=== PATIENT | male | born 1950 | race Caucasian/White ===

== ENCOUNTER 2024-01-31 06:19 | Day surgery (SDC) | payer MEDICARE, OTHER, SELFPAY ==
[2024-01-31] VITALS (7 sets, daily range): BP systolic 134–182; BP diastolic 65–94; BMI 35.8
[2024-01-31] MEDS: NSS 321 ML IV (07:09)
[2024-01-31 08:14] LABS: ACT-LR - POC 353 Seconds (116-155)
[2024-01-31 08:45] LABS: ACT-LR - POC 303 Seconds (116-155)
--- NOTE | 2024-01-31 09:07 | ITS.CL.ANGIO ---
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
Angioplasty
Procedure Report:
CARDIAC CATHETERIZATION REPORT
Date of Procedure: 01/31/2024
Referring: Brian Stover D.O.
INDICATION: High risk chest pain, suspect false negative stress test.
PROCEDURE:
1. Left heart catheterization.
2. Coronary angiography.
3. Failed attempt at intravascular ultrasound.
4. Successful PCI of the ostial RCA.
ACCESS:
6 [place]ian right radial artery.
CATHETERS:
1. 5 [place]ian JR4.
2. 5 Maur[place]ian JL 3.5.
3. 6 [place] JR4 guiding catheter.
HEMODYNAMIC DATA
Weight (kg): 106.9
AO (s/d/x, mmHg): 118/67/90
LV (s/x mmHg): 119/19 (A wave to 30)
LEFT VENTRICULOGRAPHY: Not performed.
CORONARY ANGIOGRAPHY
Dominance: Right.
Left Main: Normal size, bifurcating vessel. There is no coronary artery disease.
LAD: Normal size vessel giving rise to 2 significant diagonals. There is a 20% lesion in the proximal LAD. There is a calcified, 70% lesion in the proximal/mid LAD, spanning the origin of the small first diagonal.
Ramus: Congenitally absent.
Circumflex: Large size, nondominant vessel giving rise to 3 obtuse marginals. There are minimal luminal irregularities throughout the body of the vessel. OM 3 is chronically totally occluded in its proximal margin. OM 3 fills via retrograde
collaterals from the LAD and OM 2.
RCA: Normal size, dominant vessel. There is a 90%, eccentric, true ostial RCA lesion.
INTERVENTION(S)
1. Failed attempt at intravascular ultrasound.
2. Successful PCI of the 90% ostial RCA lesion (Xience Skypoint 3.0 x 12 GERMAIN, postdilated with a 3.5 x 8 NC balloon) with reduction in stenosis to 0%, maintaining MAYRA-3 flow.
Narrative:
The decision was made to perform intracoronary imaging. The diagnostic catheter was removed over a wire and exchanged for 6 [place]ian JR4 guiding catheter. The guiding catheter was advanced into the ascending aorta and seated in the right coronary
artery. Additional heparin was given to obtain an ACT greater than 250 seconds. After crossing the lesion with a coronary wire, an IVUS catheter was advanced through the guiding catheter and into the aorta but would not cross the ostium of the
RCA. Ultimately, IVUS was abandoned.
The decision was made to proceed with percutaneous coronary intervention. The calcified, eccentric 90% true ostial RCA lesion was predilated with a 2.0 x 12 semi-compliant balloon to 12 alejandro. The semicompliant balloon was removed and a 3.0 x 12
noncompliant balloon was advanced to ensure adequate expansion. This balloon would not cross the lesion. The noncompliant balloon was removed and the semicompliant balloon was readvanced. The lesion was predilated to 18 alejandro. The semicompliant
balloon was removed and the noncompliant balloon was then readvanced, this time crossing into the RCA with some difficulty. The ostial lesion was predilated to 14 alejandro. A BMW wire was advanced as a bumper wire and seated in the right coronary cusp
to allow for subselective engagement and RCA stent placement. The noncompliant balloon was removed and a Xience Skypoint 3.0 x 12 drug-eluting stent was advanced. The stent across the lesion with some difficulty. Meticulous care was taken while
positioning the stent, with 1�2 cells in the aorta, but covering the ostial lesion. The stent was deployed at 12 atmospheres. The stent balloon was removed. A 3.5 x 8 noncompliant balloon was advanced into the stent and the stent was postdilated to
14 atmospheres throughout. The ostial portion of the stent was postdilated to 16 alejandro to flare the stent in the aorta. Angiography was performed in orthogonal views, confirming good stent expansion and an excellent angiographic result. The coronary
wire was withdrawn and the guide was disengaged from the artery.
Given the complexity, radiation exposure and contrast volume required, the decision was made to stage the proximal/mid LAD lesion. The catheter was removed over a standard J-wire.
Closure Device: Vascular band.
Radiation (mGy): 1632.49
DAP (cm2.Gy): 130.83
Fluoroscopy time (minutes): 18.4
Sedation time (minutes): 63
CONCLUSIONS
1. 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
3.0 x 12 GERMAIN, postdilated with a 3.5 x 8 NC balloon to 14 alejandro throughout, 16 alejandro to flare the ostium) with reduction in stenosis to 0%, maintaining MAYRA-3 flow.
2. Moderately elevated filling pressures (LVEDP = 19 mmHg at 106.9 kg) with evidence of diastolic dysfunction (A wave to 30 mmHg).
RECOMMENDATIONS:
1. Expectant management after cardiac catheterization via right radial approach.
2. Limited weight bearing on the right wrist for one week.
3. Dual antiplatelet therapy with aspirin and clopidogrel for at least 12 months, followed by aspirin indefinitely.
4. Staged PCI of the LAD in 2 weeks.
5. Continue guideline directed medical therapy.
6. High-dose, high potency statin.
7. Referral to cardiac rehab.
Copy to: Brian Stover D.O., Ayo Collazo M.D., Ilya Sánchez M.D.
Brian Stover DO, FACC, FACP
[2024-01-31] MEDS: NSS 1000 IV (09:17)
--- NOTE | 2024-01-31 16:35 | W.PN.UPDATE ---
Update Note
Progress Note Update
Pt seen post RCA PCI. Right radial cath site without ht/bleeding. OOB ambulating. Post EKG SB 58, no acute changes. Pt understands importance of uninterrupted DAPT w/asa, plavix. Cardiac rehab consulted.
Residual CAD in LAD, and will return next week for staged intervention. Followup at [facility] post 2nd PCI. Home today if cath site/tele remain stable.
== END 2024-01-31 13:56 | disposition home or self-care (01) ==
LOC: CATH 06:19
PROVIDERS: ATTENDING PHYSICIAN Internal Medicine Cardiovascular Disease; FAMILY PHYSICIAN Family Medicine; OTHER PHYSICIAN Internal Medicine Cardiovascular Disease
DX: I25.10 Atherosclerotic heart disease of native coronary artery without angina pectoris (principal); R07.9 Chest pain, unspecified; Z79.82 Long term (current) use of aspirin; Z79.02 Long term (current) use of antithrombotics/antiplatelets; F17.210 Nicotine dependence, cigarettes, uncomplicated
CPT/HCPCS: 93458; 92978; C9600; 85347; 93005; C1725; C1753; C1769; C1874; C1894; Q9967

== ENCOUNTER 2024-02-01 23:39 | Inpatient (IN) | payer MEDICARE, OTHER, SELFPAY ==
[2024-02-01] VITALS (7 sets, daily range): BP systolic 152–169; BP diastolic 76–85; BMI 35.2
[2024-02-01 21:43] LABS: % Basophils 0.1 % (0-2); % Eosinophils 2.8 % (0-6); % Immature Granulocytes 0.3 % (0-0.5); % Lymphocytes 26.2 % (20.5-51.1); % Monocytes 4.9 % (1.7-9.3); % Neutrophils 65.7 % (42.2-75.2); Absolute Eosinophils 0.2 10^3/uL (0-0.7); Absolute Lymphocytes 1.8 10^3/uL (1.2-3.4); Absolute Monocytes 0.3 10^3/uL (0.1-0.6); Absolute Neutrophils 4.4 10^3/uL (1.4-6.5); Hematocrit 28.8 % (39.0-52.0); Hemoglobin 9.5 g/dL (13.0-18.0); Mean Corpuscular Hgb 32.4 pg (27.0-31.0); Mean Corpuscular Volume 98.3 fL (80.0-94.0); Nucleated Red Blood Cells % 0 % (-); Red Blood Cell Count 2.93 10^6/uL (4.70-6.10); Red Cell Dist. Width 13.7 % (11.5-14.5); White Blood Cell Count 6.8 10^3/uL (4.8-10.8)
--- NOTE | 2024-02-01 21:55 | ED.GENMED ---
History of Present Illness
General
Chief Complaint: Abdominal Symptoms
Source: patient and spouse
Exam Limitations: none
Time Seen by Provider: 02/01/24 21:11
Travel History
Have you had any contact with someone who has COVID-19?: No
Do you have any symptoms of coronavirus? Fever > 100 degrees, chills, cough, shortness of breath, sore throat, loss of taste or smell, muscle aches, or headache?: No
History of Present Illness
History of Present Illness:
73-year-old male relatively sudden onset disequilibrium vertigo nausea vomiting at 6 PM. Has had some headache earlier that he thought was from his Imdur. No other focal neurologic symptoms. Had a cardiac cath done yesterday and stent placement.
No chest pain or shortness of breath.
Past History
Past History
ED Past Medical History: CAD
ED Past Surgical History: Appendectomy and Cardiac (Cardiac stent)
Social History
Tobacco: Non-smoker
Personal:
Living: with family
Review of Systems
Review of Systems
All Other Systems: Not applicable
Respiratory: Reports no symptoms
Cardiac: Reports no symptoms
Phy Exam
Physical Exam
Physical Exam:
GENERAL: Alert and oriented in no apparent distress
EYE: Orbits normal. Bilateral nystagmus. Questionable slight rotatory component.
NECK: Supple, no significant adenopathy. No carotid bruit
ENT: Pharynx without erythema
CARDIAC: Regular rate and rhythm without any obvious murmurs.
LUNGS: Clear breath sounds,normal
ABDOMEN: Soft, without focal tenderness or distention
NEUROLOGICAL: Alert and oriented , speech normal. Cranial nerves II through XII intact. [id number] normal. Nonfocal.
SKIN: Warm and dry, no rash or lesion, no discoloration, skin intact.
MUSCULOSKELETAL: No edema,no deformity.Good color
PSYCH: Normal and appropriate interaction.
Course
Orders/Labs/Results
Orders:
Orders
02/01/24 20:57
Electrocardiogram (*1) Urgent
Reason for Study: Abdominal Pain
02/01/24 20:58
EKG- Treatment ONCE
02/01/24 21:25
CT Head W/o Cont STROKE ALERT Urgent
Comment:
Reason For Exam: Sudden disequilibrium/vertigo
CT Head/Neck Ang STROKE ALERT Urgent
Comment:
Reason For Exam: Sudden disequilibrium/vertigo
02/01/24 21:34
CMP [Comprehensive Metabolic Panel] Urgent
Complete Blood Count/With Diff Urgent
02/01/24 22:14
Ondansetron Injectable [Zofran] 4 mg IV NOW STA
02/01/24 23:22
Admit/Transfer Patient As Directed
Co-Sign Provider:
Level of Care: Inpatient admission
Assign to:: Telemetry
Physician / Group: Nickolas
Diagnosis: Vertigo
Reason for Telemetry: CVA/TIA
Date to Stop Telemetry: 02/04/24
Time to Stop Telemetry: 11:00
Reason for Hospitalization: Vertigo v posterior circ CVA.
Expected length of stay greater than two midnights?: Yes
ELOS- Estimated Length of Stay in days: 2
I certify the patient meets the requirements for IP care: Yes
02/01/24 23:24
Code Status As Directed
Resuscitation Status: Full Code
02/01/24 23:31
diazePAM [Valium Injection] 2 mg IV NOW STA
02/02/24 02:50
0.9% Sodium Chloride [Nss (Preservative Free)] See Protocol IV PRN PRN
Acetaminophen [Tylenol] 650 mg PO Q4HPRN PRN
Diazepam [Valium] 5 mg PO TIDPRN PRN
FOLic ACID [Folvite] 1 mg 0.9% Sodium Chloride 50 ml [Nss] 50 ml IV DAILYPRN
Lorazepam [Ativan] 1 mg IV Q1HPRN PRN
Lorazepam [Ativan] 1 mg PO Q2HPRN PRN
Lorazepam [Ativan] 2 mg IV Q1HPRN PRN
Ondansetron Injectable [Zofran] 4 mg IV Q6HPRN PRN
02/02/24 02:50
Case Management Consult Once
Case Management Consult: Other
Comment: Substance abuse counseling
DIETARY CONSULT Routine
Reason for Consult: Nutrition support, possible refeeding guidelines
NEUROLOGY CONSULT Routine
Consulting Provider: Celeste Harris
Was physician already notified: Yes
Reason for consult: Dizziness
TSH Reflex To Free T4 Routine
Activity As Directed
Activity Level: Ambulate
With Assistance
Bladder Scan As Directed
Follow Bladder Retention/Intermittent Cath Algorithm?: Yes
PRN if no void in __ hours: 6
Frequency: Per Retention Algorithm
If Bladder Scan Result >: 400
then:: Straight cath
EKG with chest pain [ECG as needed] As Directed
ECG as needed for:: Chest Pain
I/O [Intake/ Output] As Directed
Frequency: Per unit guidelines
MSAS SCORE As Directed
MSAS Score 0-4: Repeat MSAS every 2 hours until 0-4 for three consecutive assessments, then every 4 hours x 48
hours.
MSAS Score 5-7: For MILD withdrawl symptoms. Repeat MSAS and RASS every 2 hours
MSAS Score 8-11: For MODERATE withdrawal symptoms. Repeat MSAS and RASS every 1 hour. Consider ICU or IMU
level of care.
MSAS Score > 11: For SEVERE withdrawal symptoms. Repeat MSAS and RASS every 1 hour. Notify provider, consider
ICU level of care.
MSAS Additional Instructions: If no improvement or no decrease in score from severe to moderate within 12
hours, consult psychiatry
MSAS Notify Provider: Notify provider if patient requires more than 10 mg of Lorazepam in eight hour period.
Neurological Checks As Directed
Frequency: q4h
Pneumatic Compression Sleeves As Directed
Type: Knee high
Straight Cath As Directed
Frequency: Per Retention Algorithm
Additional Instructions: straight cath as needed per acute urinary retention algorithm for 24 hrs
Additional Instructions: for bladder scan greater than 400 mL
Vital Signs As Directed
Frequency: Per unit guidelines
Oxygen Therapy [O2 Therapy] [RESP] Routine
Titrate/Wean O2 to maintain O2 sat greater than (%): 94
Ot Eval And Treat Routine
PT Consult [Pt Eval And Treat] Routine
Activity Level: Ambulate
With Assistance
DX Deep Vein Thrombosis Video Routine
02/02/24 06:00
EKG [Electrocardiogram (*1)] IN AM
Reason for Study: Chest Pain
Clear Liquid
Basic Metabolic Panel IN AM
Complete Blood Count/No Diff IN AM
Magnesium IN AM
MR Brain Without Contrast IN AM
Comment:
Reason For Exam: Vertigo
Recent pill cam endoscopy?: No
02/02/24 08:00
Clopidogrel Bisulfate [Plavix] 75 mg PO DAILY
FOLic ACID [Folvite] 1 mg PO DAILY
Thiamine Injection 200 mg IV Q12
02/02/24 22:00
Aspirin Chewable [Low Strength Aspirin] 81 mg PO HS
Atorvastatin [Lipitor] 40 mg PO HS
ISOSORBIDE MONOnitrate ER [Imdur (Extended Release)] 30 mg PO HS
Metoprolol Xl [Toprol Xl] 50 mg PO HS
02/04/24 11:00
DC Protocol for Telemetry ONCE
02/05/24 08:00
Thiamine HCl [Vitamin B1] 100 mg PO BID
Abnormal Lab Results
02/01/24
21:34
RBC 2.93 L 10^6/uL
(4.70-6.10)
Hgb 9.5 L g/dL
(13.0-18.0)
Hct 28.8 L %
(39.0-52.0)
MCV 98.3 H fL
(80.0-94.0)
MCH 32.4 H pg
(27.0-31.0)
Plt Count 77 L 10^3/uL
(130-400)
MPV 11.2 H fL
(7.4-10.4)
BUN 25 H mg/dl
(9-20)
Glucose 115 H mg/dl
(70-99)
02/01/24 21:34
02/01/24 21:34
Vital Signs
Initial and Last Documented VS:
Initial Vital Signs
Temp Pulse Resp Pulse Ox
97.9 F 62 12 96
02/01/24 20:59 02/01/24 20:59 02/01/24 20:59 02/01/24 20:59
Last Documented Vital Signs
Temp Pulse Resp BP Pulse Ox
97.9 F 56 10 148/76 93
02/01/24 20:59 02/02/24 02:00 02/02/24 02:00 02/02/24 02:00 02/02/24 02:00
MDM/Problems Addressed
Differential Diagnosis Includes:
Concern for central etiology with sudden onset of symptoms and no reason for a sudden inner ear issue. Also bilateral nystagmus. Discussed with neurology. 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
she know his kidney function was normal. Was sent for CT and CT angiography.
*Radiology
Radiology exam reviewed: radiology read reviewed (Negative CT head negative CT angiography)
*Pulse Oximetry
Patient hypoxic: no
*EKG
Interpreted by ED Provider?: Yes
Interpretation: abnormal
Comparison EKG: changes noted
Heart Rate: 63
Rate: normal
Rhythm: sinus and PAC's
[place]: normal axis
Interval: normal interval
QRS Pattern: normal QRS
Ischemia: no ischemia
*Communications Marketing Intern Interpretation
Rate: normal
Interpretation: normal
Heart Rate: 66
Rhythm: sinus
*Critical Care Note
Total Time (30-74mins, 75-104mins- exclusive of procedures): 15
Update Note
Update Note:
Testing stable. Discussed with neurology. Also made invasive cardiology aware. Discussed with hospitalist.
ED Attending Note
-
Portions of this chart may have been created with voice recognition software.� Occasional wrong word or��sound alike� substitutions may have occurred due to the inherent limitations of voice recognition software.
Discharge Plan
Departure
Patient Disposition: Admit
Date of Disposition: 02/01/24
Time of Disposition: 22:10
Presentation/result/management discussed w/ accepting MD/DO: Neurology
Discharge Problem:
Sudden disequilibrium/ataxia, Possible cerebellar ischemia, Recent cardiac cath, Anemia/thrombocytopenia
Interventions
Interventions:
*Risk Screen - Suicide Last Done: 02/01/24 20:59
*General Assessment Last Done: 02/01/24 20:59
*Neglect/Abuse Screening Last Done: 02/01/24 20:59
ED- Fall Risk Assessment Last Done: 02/01/24 21:17
*ED COVID-19 Vaccine History Last Done: 02/01/24 21:17
FI-Flyuyz-Itqljmizzx Assessment Last Done: 02/01/24 21:17
[2024-02-01 21:56] LABS: ALT (SGPT) 20 U/L (0-50); AST (SGOT) 26 U/L (17-59); Albumin 4.1 g/dl (3.5-5.0); Alkaline Phosphatase 64 U/L (38-126); Blood Urea Nitrogen 25 mg/dl (9-20); Carbon Dioxide 24 mmol/L (22-30); Chloride 106 mmol/L (98-107); Estimated Creatinine Clearance 83 ml/min; Glucose 115 mg/dl (70-99); Sodium 135 mmol/L (135-145); Total Bilirubin 0.6 mg/dl (0.2-1.3); Total Protein 7.2 g/dl (6.3-8.2); eGFR > 60.00
[2024-02-01 21:59] LABS: Mean Platelet Volume 11.2 fL (7.4-10.4); Platelet Count 77 10^3/uL (130-400)
[2024-02-01] MEDS: ZOFRAN 4 MG IV (22:23)
--- NOTE | 2024-02-01 23:32 | HPS.HSE ---
Family Physician
-
Family Physician: Ayo Collazo MD
Chief Complaint
-
Dizziness, N/V
History of Present Illness
Patient is a 73y M with PMH significant for ASCVD who presents to ED complaining of acute onset of dizziness this evening. Patient is s/p cardiac catheterization on 01/31/24 for multi-vessel coronary disease. Patient underwent GERMAIN placement to
the RCA and is tentatively set for repeat cath in a week or so for staged intervention on proximal LAD lesion. Patient states that he was doing well after the procedure. He had a mild headache today and thought that it might be due to his Imdur -
which he started taking about one week ago. Patient states that he was grilling this evening around 6 PM when he had sudden onset of dizziness / vertigo. Patient states that he felt very unsteady on his feet. He did not fall. He developed nause
and had several episodes of non-bloody, bilious emesis and ultimately presented to the ED for further evaluation.
In the ED, patient continues to complain of nausea and has had an additional 5 episodes of emesis here. He no longer complains of dizziness sensation.
Patient also had mild epistaxis here in the ED.
Patient denies any prior history of similar symptoms. He denies any numbness / tingling in the arms / legs.
Family has noted no slurring speech, facial asymmetry, etc.
In addition to Imdur started one week ago, patient is newly on Plavix beginning yesterday. He was already on ASA 81mg daily and continues this.
Medical History
Past Medical History
Past Medical History: Reports Other
Additional Past Medical History:
ASCVD
DJD
Past Surgical History: Reports Other
Additional Past Surgical History:
Appendectomy
PTCA with Stent (01/31/24)
Social History
Tobacco: Former Smoker (Quit smoking 15 years ago. Approx 40 pack years total use.)
Alcohol: Daily (1-2 drinks every day.)
Drug: None
Personal:
Living: With Family
Family History
Family History: Not pertinent
Allergies / Home Medications
Allergies reflects when Allergies were last updated in [facility].
Home Medications with original date entered in [facility]
Allergy/Medication List:
Allergies
Allergy/AdvReac Type Severity Reaction Status Date / Time
Penicillins Allergy Rash Verified 01/31/24 06:50
Home Medications
aspirin 81 mg chewable tablet 81 mg PO HS 01/31/24
atorvastatin 40 mg tablet 40 mg PO HS 01/31/24
clopidogrel 75 mg tablet 75 mg PO DAILY #90 tabs 01/31/24
ibuprofen 200 mg tablet 200 mg PO Q6H PRN mild pain 01/31/24
isosorbide mononitrate 30 mg tablet,extended release 24 hr 30 mg PO HS 01/31/24
metoprolol succinate 50 mg tablet,extended release 24 hr 50 mg PO HS 01/31/24
naproxen 500 mg tablet 500 mg PO BID PRN mild Pain 01/31/24
nitroglycerin 0.4 mg sublingual tablet 0.4 mg sublingual [id number] PRN chest pain #25 tabs 01/31/24
buprenorphine 8 mg-naloxone 2 mg sublingual film 1 film sublingual TID 02/01/24
Review of Systems
-
History Source: Patient
A 12 point ROS was completed and negative except as noted: Yes
Constitutional: Denies Fever or Chills
EENT: Reports Other (epistaxis); Denies Sore Throat
Respiratory: Denies Cough or Trouble Breathing
Cardiac: Denies Chest Pain, Palpitations or Syncope
Abdomen/GI: Reports Nausea and Vomiting; Denies Abdominal Pain, Diarrhea, Bloody Stools or Black Stools
: Denies Dysuria or Frequency
Musculoskeletal: Denies Edema
Neurological: Reports Dizzy and Headache; Denies Weakness or Numbness
Psych: Denies Depression or Anxiety
Physical Exam
Vital Signs
Vital Signs
Temp Pulse Resp BP Pulse Ox
97.9 F 66 21 156/84 95
02/01/24 20:59 02/01/24 22:30 02/01/24 22:30 02/01/24 22:30 02/01/24 22:30
Physical Exam
General: Other (73y M in mild distress due to nausea.)
HEENT: Moist mucous membranes, PERRLA and Other (No appreciable nystagmus at present. )
Respiratory: Clear; No Wheezes, Rales or Rhonchi
Cardiac: S1/S2 and Regular Rhythm; No Murmur
GI: Soft, Non Tender, Non Distended and Normal Bowel Sounds
Musculoskeletal: No Clubbing, No Cyanosis, No Edema and Other (R wrist dressing in place s/p cath 01/31/24.)
Neuro: AO x 3 and Other (Strength is intact / symmetric. No abnormal cerebellar signs appreciated.)
Laboratory Results
-
02/01/24 21:34
02/01/24 21:34
Laboratory Results
Total Bilirubin 0.6 mg/dl (0.2-1.3) 02/01/24 21:34
AST 26 U/L (17-59) 02/01/24 21:34
ALT 20 U/L (0-50) 02/01/24 21:34
Alkaline Phosphatase 64 U/L (38-126) 02/01/24 21:34
Impression/Plan
-
A/P: Patient is a 73y M with PMH significant for CAD s/p PTCA and stenting on 01/31/24 who presents to ED complaining of abrupt onset of dizziness with N/V this evening.
Vertigo / Dizziness
Intractable N/V
- Admit for further evaluation and treatment.
- ? BPPV versus posterior circulation CVA / insult.
- Supportive care for now with antiemetics, vertigo medications, etc.
- Follow for changes in neuro exam.
- Continue DAPT without interruption.
- Neuro consulted.
- MRI brain in AM for further evaluation.
- PT / OT evaluations.
- Follow for clinical improvement and / or any new or worsening symptoms.
ASCVD
- Stable. No chest pain, dyspnea, etc.
- s/p cath with RCA stent placement 01/31/24.
- Has known proximal LAD lesion tentatively for staged intervention next week.
- Continue current CV med regimen as noted above.
- Follow for any new symptoms.
Elevated BP
- Patient denies any prior history of hypertension.
- On current medications for antianginal properties, not BP control.
- Continue meds as noted above, but holding parameters to allow degree of hypertension after possible CVA.
- Goal of normotension prior to discharge.
Thrombocytopenia
- No prior labs for comparison.
- Mild epistaxis noted in the ED - improved.
- Would continue DAPT for now given issues as noted above.
- Continue to monitor platelet count and watch for any signs of bleeding.
DVT Prophylaxis: SCDs
Code Status: Full
[2024-02-02] VITALS (18 sets, daily range): BP systolic 121–165; BP diastolic 72–85; PULSE 57; BMI 32.9
[2024-02-02] MEDS: VALIUM INJECTION 2 MG IV (00:43)
[2024-02-02 04:16] LABS: Hematocrit 31.9 % (39.0-52.0); Hemoglobin 10.2 g/dL (13.0-18.0); Mean Corpuscular Hgb 31.3 pg (27.0-31.0); Mean Corpuscular Volume 97.9 fL (80.0-94.0); Mean Platelet Volume 11.4 fL (7.4-10.4); Platelet Count 83 10^3/uL (130-400); Red Blood Cell Count 3.26 10^6/uL (4.70-6.10); Red Cell Dist. Width 13.6 % (11.5-14.5); White Blood Cell Count 6.3 10^3/uL (4.8-10.8)
--- NOTE | 2024-02-02 04:28 | PTCARENOTE ---
Patient arrived from ER around 0230 to room 3343. Ambulated from stretcher to BR with FWW; reports some dizziness but denies nausea or vomiting at this time. Oriented to room and use of call stafford. Admission questions complete. MSAS ordered per
provider; score of zero. Pt reports last drink was 01/29/24. Right wrist dressing removed; cath site intact and scabbed over, no redness, pt reports some tenderness at site, +2 radial pulse. LE with trace edema, slightly brown in color, pt reports
this is chronic. On room air; lungs with coarse sounds at bilateral bases. Tele applied showing NSR/SB. Denies any chest pain or pain in general. Pt tolerating ice water, swallowing w/o signs of aspiration. Q4 hour neuro checks in place; no deficits
noted.
Call stafford and tray table left within reach. RN sitting outside closest nursing station.
[2024-02-02 04:39] LABS: Blood Urea Nitrogen 22 mg/dl (9-20); Calcium 9.6 mg/dl (8.4-10.2); Carbon Dioxide 26 mmol/L (22-30); Chloride 103 mmol/L (98-107); Estimated Creatinine Clearance 83 ml/min; Glucose 112 mg/dl (70-99); Magnesium 2.1 mg/dl (1.6-2.3); Potassium 4.5 mmol/L (3.5-5.1); Sodium 138 mmol/L (135-145); eGFR > 60.00
[2024-02-02 05:10] LABS: TSH Reflex To Free T4 1.12 uIU/ml (0.47-4.68)
--- NOTE | 2024-02-02 09:07 | CON.NEURO4 ---
Consultation - Neurology 4
-
CONSULTING PHYSICIAN: Eric Quick
REFERRING PHYSICIAN: Hospitalist
DICTATED BY: Eric Quick
DATE/TIME OF REQUEST: 02/02/24
DATE/TIME OF CONSULTATION: 02/02/24
Reason for Consultation: Nausea/vomiting, dizziness, vertigo and balance problems of sudden onset
History of Present Illness:
Patient is a 73 year old right handed man with history of CAD and recent coronary stent on 01/30 who presented to hospital yesterday evening after sudden onset of disequilibrium which evolved into vertigo, nausea and vomiting. Patient had done well
after cardiac catheterization and went home the same day with no symptoms. The evening of 01/31 he was doing some grilling steaks around 6 PM when he had sudden onset of a feeling of imbalance, he sat down thinking this would help but the feeling
worsened and he started to have vertigo with nausea and had several episodes in vomiting total. There was no headache or neck pain, possibly some abnormal movements of the eyes but no diplopia, dysarthria, unilateral weakness or paresthesia and no
loss of consciousness. Nothing like this had ever happened before. There was no new hearing loss or tinnitus and no hiccups. He had CTA of the head and neck and CT head done in ER which showed no acute or intervenable abnormalities. His last
episode of vomiting was about 2 AM last night. No chest pain or dyspnea or palpitations with presenting symptoms. Symptoms lasted several hours in total.
He is feeling improved this morning. No neck pain or headache. Not feeling 100% but better. No recent neck injuries, no recent illnesses before this. No chest pain or or dyspnea at this time. No history of any migraine headaches or episodes of
vertigo. Had had a eustachian tube problem many years ago.
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
Past Medical History: Coronary artery disease, degenerative joint disease
Surgical History: Appendectomy, cardiac catheterization with GERMAIN to RCA 01/31/24
Family History: Non-contributory
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
Allergies: Penicillins
Review of Symptoms:
Patient denies any fever, headache, chest pain, shortness of breath, GI or symptoms.
Physical Exam:
Middle elderly aged man appears his stated age, appears well no distress, no head or neck trauma, eyes and oropharynx clear, neck no masses. Heart rate regular, breathing unlabored, abdomen soft non tender, no lower extremity edema.
Neurologic Examination:
The patient is awake, alert and oriented x 3. He is able to follow commands and answer questions appropriately. There is no aphasia or dysarthria. On cranial nerve assessment, pupils are 3 mm bilateral, round and reactive to light and
accommodation. Visual gaxiola are full. Extraocular movements are intact. Facial sensations are intact and bilaterally symmetrical, there is no facial asymmetry. Hearing is intact bilaterally to normal conversation volume. Tongue palate and uvula
are midline. Sternocleidomastoid strengths are full bilaterally. Motor strengths are 5/5 bilateral upper and lower extremities on medical research [place] scale. There is no drift or involuntary movement noted. Deep tendon reflexes are 2+ bilateral
upper and lower extremities and Babinski is absent bilaterally. Sensations of pain, touch, temperature and vibration are intact and bilaterally symmetrical. There was no extinction noted on double simultaneous stimulation. Coordination is intact by
finger to nose bilaterally. Able to sit and stand independently, stance is normal, no wide base or ataxia
Neuro Imaging: CT head non contrast no acute or chronic infarcts, no hemorrhage, no masses
CTA head and neck with bilateral carotid stenosis and calcification seen, no intracranial occlusion, vertebral and basilar arteries patent
CTA head and neck
FINDINGS: The bolus is weak but the study is readable There is no gross evidence of M1 or M2 occlusion. There is no evidence of carotid dissection.
There is mild atherosclerotic vascular disease.
Right: There is severe calcified plaque of the distal right common carotid artery. There is moderate plaque in the right carotid siphon.
Left: There is severe distal left common carotid artery calcified plaque. There is severe plaque of the proximal left internal carotid artery causing 50% stenosis. There is moderate plaque of the left carotid siphon
The posterior circulation is intact.
The enhanced brain parenchyma is unremarkable.
There is mild left ethmoid sinus and moderate left maxillary sinus mucosal thickening.
There is no significant cervical lymphadenopathy. Salivary glands are within normal limits. The imaged lungs show no significant abnormalities. The airway is within normal limits.
IMPRESSION: Slightly limited bolus but no gross evidence of M1 or M2 occlusion. No carotid dissection.
Moderate nonacute sinusitis.
Impressions
1. Sudden onset dysequlibrium, vertigo, nausea and vomiting 1 day after uncomplicated cardiac catheterization. Normal neurologic examination now and has improved. Most likely this is a minor stroke to the cerebellum which has improved versus
TIA of the posterior circulation. Could have been provoked from the recent cardiac catheterization. Otherwise does have vascular risk factors for stroke with CAD. His current examination along with the duration of symptoms are not consistent with
vestibular neuritis, BPPV, or meniere's disease.
2. Asymptomatic carotid stenosis.
3. Recent cardiac catheterization
4.
Patient has the following risk factors for their symptoms:
IV Tenecteplase/IAT candidacy: No LVO not an IAT candidate, was not given TNK
Recommendations:
1. Would pursue goal normotension
2. Neurologic checks and NIH scales
3. Monitor on cardiac telemetry
4. No changes to the antiplatelet regimen with DAPT, from neurologic perspective he will not need to be on DAPT for any longer than 3 weeks, anticipate several months of DAPT for the cardiac stent
5. Would check MRI of the brain without contrast, if not able to obtain study then would repeat CT head non contrast this afternoon understanding that CT head will be unlikely to visualize a cerebellar or posterior circulation infarct
6. PT/OT evaluations
7. Would check transthoracic echocardiogram
8. Would have outpatient vascular surgery evaluation for carotid stenosis which I feel is asymptomatic as symptoms do not align with a carotid source
9. Symptomatic treatment of vertigo or nausea which has improved
Will follow
Discussed patient care with: Patient
[2024-02-02] MEDS: PLAVIX 75 MG PO (09:16)
[2024-02-02] MEDS: FOLVITE 1 MG PO (09:16)
[2024-02-02] MEDS: THIAMINE INJECTION 200 MG IV ×2 (09:16→20:32)
[2024-02-02] MEDS: FLUSH (NSS) 1 FLUSH IV (09:17)
--- NOTE | 2024-02-02 09:52 | PTCARENOTE ---
Patient tolerated clear liquid tray. Denies any nausea. Reports slight dizziness with ambulation. Patient currently off unit to MRI of brain.
--- NOTE | 2024-02-02 12:32 | PTCARENOTE ---
Report given to Will RN. Patient going to cardiac services for an echo and will be transported to 4th floor rm 415 bed 1 afterwards.
--- NOTE | 2024-02-02 13:30 | W.PN.HOSP.TC ---
Today's Communication/Plan
-
DAPT, Statin
goal normotension
ECHO
PT/OT
Assessment / Plan
Assessment / Plan
General: Other (73y M in mild distress due to nausea.)
HEENT: Moist mucous membranes, PERRLA and Other (No appreciable nystagmus at present. )
Respiratory: Clear; No Wheezes, Rales or Rhonchi
Cardiac: S1/S2 and Regular Rhythm; No Murmur
GI: Soft, Non Tender, Non Distended and Normal Bowel Sounds
Musculoskeletal: No Clubbing, No Cyanosis, No Edema and Other (R wrist dressing in place s/p cath 01/31/24.)
Neuro: AO x 3 and Other (Strength is intact / symmetric. No abnormal cerebellar signs appreciated.)
#Sudden onset dysequlibrium, vertigo, nausea and vomiting
-2/2 to cva most likely
-MRI: Tiny punctate focus of nonhemorrhagic subacute infarct in the high left frontoparietal lobe.
-Goal normotension
-NIH scales
-Tele
-DAPT: neurologic perspective he will not need to be on DAPT for any longer than 3 weeks although will be on for longer period of time due to PCI
-PT/OT
-ECHO
-Outpatient vascular for eval of carotid stenosis
#ASCVD
- Stable. No chest pain, dyspnea, etc.
- s/p cath with RCA stent placement 01/31/24.
- Has known proximal LAD lesion tentatively for staged intervention next week.
- Cont DAPT, statin
- Follow for any new symptoms.
Elevated BP
- Continue meds as noted above, but holding parameters to allow degree of hypertension after possible CVA.
- Goal of normotension
Thrombocytopenia
- No prior labs for comparison.
- Mild epistaxis noted in the ED - improved.
- Would continue DAPT for now given issues as noted above.
- Continue to monitor platelet count and watch for any signs of bleeding.
DVT Prophylaxis: HSQ
Total time spent on today's encounter was 50 minutes which included time spent in counseling the patient/family regarding diagnosis and treatment plan as listed above, goals of care, and symptom management. Case was discussed with nursing staff,
specialists, and care coordinators/case management. All labs and imaging personally reviewed by me. Remainder the time spent in detailed review of previous records, lab data, imaging, and other medical provider documentation.
Anticipated Discharge: Within 24 hours
Subjective/Interval History
-
Date of Service: February 02, 2024
No acute events overnight
Objective Data
-
Labs:
Laboratory Results
02/02/24
03:42
WBC 6.3
Hgb 10.2 L
Hct 31.9 L
Plt Count 83 L
Sodium 138
Potassium 4.5
Chloride 103
Carbon Dioxide 26
BUN 22 H
Creatinine 1.0
Glucose 112 H
Calcium 9.6
Vital Signs:
Vital Signs
Temp Pulse Resp BP Pulse Ox
97.9 F 59 16 121/85 98
02/02/24 13:29 02/02/24 13:29 02/02/24 13:29 02/02/24 13:29 02/02/24 13:29
I&O
02/01/24 02/02/24 02/03/24
06:59 06:59 06:59
Output Total 500 / 500
Balance -500 / -500
Review of Systems
-
History Source: Patient
All other systems: Not reviewed unless documented
Data Reviewed
-
Labs: Labs Reviewed by me
--- NOTE | 2024-02-02 15:08 | PTCARENOTE ---
Pt [id number] from IMU. Ambulated to bed from the carpenter. Assesment unchanged from this morning. Pt rezsting in bed, call stafford in reach, at bedside.
[2024-02-02] MEDS: TOPROL XL 50 MG PO (22:50)
[2024-02-02] MEDS: LIPITOR 40 MG PO (22:50)
[2024-02-02] MEDS: LOW STRENGTH ASPIRIN 81 MG PO (22:50)
[2024-02-02] MEDS: TYLENOL 650 MG PO (22:51)
[2024-02-02] MEDS: IMDUR (EXTENDED RELEASE) 30 MG PO (22:51)
[2024-02-03 03:54] VITALS: BP 124/64
[2024-02-03 07:30] VITALS: BP 149/80
--- NOTE | 2024-02-03 07:45 | W.PN.NEURO.1 ---
Addendum entered and electronically signed by Ryan Quick MD 02/03/24 14:40:
Carotid ultrasound reviewed, study supportive of 50-69% stenosis bilaterally on the carotid arteries. Okay for discharge from my perspective on maximal medical therapy. Given the overall context of stroke 1 day after cardiac catheterization I do
not feel that his stroke is likely to represent symptomatic carotid stenosis. Should have the carotid stenosis followed in the outpatient setting can follow with neurology or cardiology.
Original Note:
Today's Communication / Plan
-
-Continue DAPT and statin
-Would delay any planned cardiac procedures for 1-2 weeks
-Check carotid ultrasound which will help with following carotid stenosis seen on CTA
-Goal normotension and normoglycemia
-Neurologic checks and NIH scales
-Anticipate may be able to DC after carotid ultrasound provided no stenosis on left ICA more than 50%
Neuro Assessment/Plan
Assessment
1. Sudden onset dysequlibrium, vertigo, nausea and vomiting 1 day after uncomplicated cardiac catheterization. Normal neurologic examination now and has improved
MRI shows small left frontal stroke in the MCA territory that explains his symptoms
CTA showed 50% plaque on the left ICA
Given the context of cardiac catheterization seems less likely this can be attributed solely to left carotid stenosis but still a possible mechanism
Periprocedural stroke due to inflammation and prothrombotic state after vascular procedures is strong possibility for cause of stroke
Less likely but possible the stroke occurred with delayed symptoms after emboli from catheterization of plaque and embolic debris
Subjective/Objective
Subjective Data
Date of Service: February 03, 2024
No acute events overnight, patient feeling much better, not having any headache or dizziness or vomiting, discussed the small stroke on MRI
Objective Data
Vital Signs
Temp Pulse Resp BP Pulse Ox
97.9 F 58 18 124/64 97
02/03/24 03:54 02/03/24 03:54 02/03/24 03:54 02/03/24 03:54 02/03/24 03:54
Sodium 138 mmol/L (135-145) 02/02/24 03:42
Potassium 4.5 mmol/L (3.5-5.1) 02/02/24 03:42
BUN 22 mg/dl (9-20) H 02/02/24 03:42
Glucose 112 mg/dl (70-99) H 02/02/24 03:42
Calcium 9.6 mg/dl (8.4-10.2) 02/02/24 03:42
Patient Allergies
Penicillins Allergy (Verified 01/31/24 06:50)
Rash
LDL Level: <70, continue statin
Review of Systems
-
History Source: Patient
All other systems: Reviewed and negative
Constitutional: No Symptoms
EENT: No Symptoms Reported
Respiratory: No Symptoms
Cardiac: No Symptoms
Abdomen/GI: No Symptoms
Genitourinary: No Symptoms
Musculoskeletal: No Symptoms
Skin: No Symptoms
Neuro: Negative Headache
Endocrine: No Symptoms
Hematologic / Lymphatic: No Symptoms
Allergy / Immunology: No Symptoms
Physical Exam
-
General: Well Nourished
Eyes: No Ptosis
HEENT: Normocephalic
Neck: No Bruits Bilaterally
Respiratory: Clear to Auscultation
Cardiac: Regular Rhythm
GI: Normal Bowel Sounds
Skin: Unremarkable
Extremities: No Clubbing
Psych: Negative Confused
Extended Neurological Exam
Mood & Affect: Mood Unremarkable and Affect Unremarkable
Attention Span & Concentration: Awake, Alert and Interactive
Memory: Unremarkable
Tremor: Hand Tremor Absent
Involuntary Movement: None
Speech: Quality Unremarkable and Quantity Unremarkable; Negative Expressive Aphasia, Receptive Aphasia or Dysarthric
Cranial Nerve II: Left Eye: Pupillary Reactivity Unremarkable, Pupillary Size Unremarkable and Visual Angel Intact
Cranial Nerve II: Right Eye: Pupillary Reactivity Unremarkable, Pupillary Size Unremarkable and Visual Angel Intact
Cranial Nerves III, IV, : Extraocular Movement: Extraocular Movement Full in all Directions
Cranial Nerve VII: Facial Symmetry: Normal Facial Symmetry
Cranial Nerve VIII: Hearing: Unremarkable Hearing to Normal Conversational Volume
Muscle Strength, Overall: Full Throughout
Muscle Bulk & Tone: Bulk Unremarkable
Pronator Drift: No Drift in Upper Extremities
Deep Tendon Reflexes: Trace Throughout
Vibration Sensation: Unremarkable
Touch Sensation: Unremarkable
Coordination: Xnxceg-[id number]-[id number] Testing Unremarkable
Babinski Sign: Absent Bilaterally
Gait & Station: Unremarkable Arm Swing and Up from Seated Without Problem; Negative Wide Based
Data Reviewed
-
CT-A: Report Reviewed and Image Reviewed
CT Head: Report Reviewed and Image Reviewed
MRI Head: Report Reviewed and Image Reviewed
Carotid Ultrasound: Ordered and Pending
Labs: Report Reviewed
[2024-02-03] MEDS: THIAMINE INJECTION 200 MG IV (08:14)
[2024-02-03] MEDS: PLAVIX 75 MG PO (08:15)
[2024-02-03] MEDS: FOLVITE 1 MG PO (08:15)
[2024-02-03 08:39] LABS: Hemoglobin 9.4 g/dL (13.0-18.0); Mean Corp Hgb Conc. 32.4 g/dL (33.0-37.0); Mean Corpuscular Hgb 32.3 pg (27.0-31.0); Mean Corpuscular Volume 99.7 fL (80.0-94.0); Mean Platelet Volume 11.3 fL (7.4-10.4); Platelet Count 87 10^3/uL (130-400); Red Blood Cell Count 2.91 10^6/uL (4.70-6.10); Red Cell Dist. Width 13.8 % (11.5-14.5); White Blood Cell Count 5.2 10^3/uL (4.8-10.8)
[2024-02-03 09:16] LABS: ALT (SGPT) 24 U/L (0-50); AST (SGOT) 27 U/L (17-59); Albumin 3.9 g/dl (3.5-5.0); Alkaline Phosphatase 60 U/L (38-126); Blood Urea Nitrogen 21 mg/dl (9-20); Calcium 9.2 mg/dl (8.4-10.2); Carbon Dioxide 28 mmol/L (22-30); Chloride 105 mmol/L (98-107); Estimated Creatinine Clearance 76 ml/min; Glucose 94 mg/dl (70-99); Potassium 4.3 mmol/L (3.5-5.1); Sodium 138 mmol/L (135-145); Total Bilirubin 0.7 mg/dl (0.2-1.3); Total Protein 6.8 g/dl (6.3-8.2); eGFR > 60.00
[2024-02-03 11:46] VITALS: BP 129/73
--- NOTE | 2024-02-03 13:06 | W.PN.HOSP.TC ---
Addendum entered and electronically signed by Ang Duran MD 02/03/24 15:39:
[id number]
Addendum entered and electronically signed by Ang Duran MD 02/03/24 14:50:
can hold on vascular surgery for outpatiet f/u =- can f/u outpatient cards/neuro
Original Note:
Today's Communication/Plan
-
DAPT, Statin
Carotid US - f/u vascular outpatient
F/u Neuro outpatient
Delay any cardiac procedures for 1-2 weeks
f/u neuro, vascular, pcp outpatient
Assessment / Plan
Assessment / Plan
General: Other (73y M in mild distress due to nausea.)
HEENT: Moist mucous membranes, PERRLA and Other (No appreciable nystagmus at present. )
Respiratory: Clear; No Wheezes, Rales or Rhonchi
Cardiac: S1/S2 and Regular Rhythm; No Murmur
GI: Soft, Non Tender, Non Distended and Normal Bowel Sounds
Musculoskeletal: No Clubbing, No Cyanosis, No Edema and Other (R wrist dressing in place s/p cath 01/31/24.)
Neuro: AO x 3 and Other (Strength is intact / symmetric. No abnormal cerebellar signs appreciated.)
#Sudden onset dysequlibrium, vertigo, nausea and vomiting
#small left frontal stroke in the MCA territory
-MRI: Tiny punctate focus of nonhemorrhagic subacute infarct in the high left frontoparietal lobe.
-Goal normotension
-NIH scales
-Tele
-DAPT: neurologic perspective he will not need to be on DAPT for any longer than 3 weeks although will be on for longer period of time due to PCI
-Statin
-delay any planned cardiac procedures for 1-2 weeks
-Carotid US
-PT/OT
-Outpatient vascular for eval of carotid stenosis
#ASCVD
- Stable. No chest pain, dyspnea, etc.
- s/p cath with RCA stent placement 01/31/24.
- Has known proximal LAD lesion tentatively for staged intervention next week.
- Cont DAPT, statin
- Follow for any new symptoms.
Elevated BP
- Continue meds as noted above, but holding parameters to allow degree of hypertension after possible CVA.
- Goal of normotension
Thrombocytopenia
- No prior labs for comparison.
- Mild epistaxis noted in the ED - improved.
- Would continue DAPT for now given issues as noted above.
- Continue to monitor platelet count and watch for any signs of bleeding.
- F/u CBC outpatient
DVT Prophylaxis: HSQ
More than 30 minutes spent in discharge including
Final examination of the patient
Summarizing hospital stay
Instructions for continuing care to all relevant caregivers
Preparation of discharge records, prescriptions, and referral forms
Total time spent (35 in minutes):
Anticipated Discharge: Today
Subjective/Interval History
-
Date of Service: February 03, 2024
no acute events
Objective Data
-
Labs:
Laboratory Results
02/03/24
07:45
WBC 5.2
Hgb 9.4 L
Hct 29.0 L
Plt Count 87 L
Sodium 138
Potassium 4.3
Chloride 105
Carbon Dioxide 28
BUN 21 H
Creatinine 1.1
Glucose 94
Calcium 9.2
Total Bilirubin 0.7
AST 27
ALT 24
Alkaline Phosphatase 60
Vital Signs:
Vital Signs
Temp Pulse Resp BP Pulse Ox
97.9 F 57 20 129/73 98
02/03/24 11:46 02/03/24 11:46 02/03/24 11:46 02/03/24 11:46 02/03/24 11:46
I&O
02/02/24 02/03/24 02/04/24
06:59 06:59 06:59
Intake Total 720 / 720
Output Total 500 / 500
Balance -500 / -500 720 / 720
Review of Systems
-
History Source: Patient
All other systems: Not reviewed unless documented
Data Reviewed
-
Labs: Labs Reviewed by me
--- NOTE | 2024-02-03 13:10 | W.DS.TRANS ---
DC Summary - [employer]
-
Discharge Instructions:
Discharge Diagnosis/Procedures small left frontal stroke in the MCA territory
Diet Low Cholesterol,Low Fat
Activity As tolerated
Blood Work cbc in 1 week with pcp
Instructions:
Stand-Alone Forms:
Changes to Home Medications: No
Discharge Medications:
DC Medications w/original date entered in [employer]
aspirin 81 mg chewable tablet 81 mg PO HS 01/31/24
atorvastatin 40 mg tablet 40 mg PO HS 01/31/24
clopidogrel 75 mg tablet 75 mg PO DAILY #90 tabs 01/31/24
isosorbide mononitrate 30 mg tablet,extended release 24 hr 30 mg PO HS 01/31/24
metoprolol succinate 50 mg tablet,extended release 24 hr 50 mg PO HS 01/31/24
naproxen 500 mg tablet 500 mg PO BID PRN mild Pain 01/31/24
nitroglycerin 0.4 mg sublingual tablet 0.4 mg sublingual [id number] PRN chest pain #25 tabs 01/31/24
buprenorphine 8 mg-naloxone 2 mg sublingual film 1 film sublingual TID 02/01/24
Home Medication Changes
na
Pending Results: No
--- NOTE | 2024-02-03 14:02 | CM ---
Patient seen with spouse, initial assessment completed. Patient reports he resides with his in a 2 story home, one step to enter. Patient reports he has a cane at home if needed, denies VN or SNF. Patient confirms PCP Ayo Collazo, pharmacy used
[facility]. Per PT, no needs. CM received consult for substance abuse counseling CM offered [facility] support to patient, patient declining. IMM reviewed, signed, placed in patients chart. Patient reports his will provide transportation
home. CM will continue to follow for discharge planning needs.
Plan; home no needs.
[2024-02-03 15:00] VITALS: BP 128/81
== END 2024-02-03 15:30 | disposition home or self-care (01) | DRG 66 ==
LOC: 4 WEST ACU 23:39
PROVIDERS: Emergency Medicine; ADMITTING PHYSICIAN Hospitalist; ATTENDING PHYSICIAN Internal Medicine; CONSULT PHYSICIAN Psychiatry & Neurology Neurology; EMERGENCY PHYSICIAN Emergency Medicine; FAMILY PHYSICIAN Family Medicine
DX: I63.519 Cerebral infarction due to unspecified occlusion or stenosis of unspecified middle cerebral artery (principal); I25.10 Atherosclerotic heart disease of native coronary artery without angina pectoris; I65.23 Occlusion and stenosis of bilateral carotid arteries; D69.6 Thrombocytopenia, unspecified; R04.0 Epistaxis; I10 Essential (primary) hypertension; Z95.5 Presence of coronary angioplasty implant and graft; Z79.82 Long term (current) use of aspirin; Z79.02 Long term (current) use of antithrombotics/antiplatelets; Z87.891 Personal history of nicotine dependence
CPT/HCPCS: 70450; 70496; 70498; 70551; 80048; 80053; 83735; 84443; 85025; 85027; 85347; 92978; 93005; 93306; 93458; 93880; 96374; 97163; 97166; 97530; 99285; C1725; C1753; C1769; C1874; C1894; C9600; Q9967

== ENCOUNTER 2024-03-01 08:32 | Day surgery (SDC) | payer MEDICARE, OTHER, SELFPAY ==
[2024-03-01] VITALS (15 sets, daily range): BP systolic 124–166; BP diastolic 67–83; BMI 33.5
[2024-03-01] MEDS: NSS 318 ML IV (10:09)
[2024-03-01 11:31] LABS: ACT-LR - POC 377 Seconds (116-155)
--- NOTE | 2024-03-01 12:07 | ITS.CL.ANGIO ---
Channel Lip Wetter - Angioplasty
Angioplasty
Procedure Report:
CARDIAC CATHETERIZATION REPORT
Date of Procedure: 03/01/2024
Referring: Brian Stover D.O.
INDICATION: Staged PCI of the mid LAD.
PROCEDURE:
1. Left-sided coronary angiography.
2. Successful PCI of the 70% mid LAD lesion.
ACCESS:
6 [place] right radial artery.
CATHETERS:
1. 6 [place] EBU 3.5 guiding catheter.
HEMODYNAMIC DATA
Weight (kg): 106.0
AO (s/d/x, mmHg): 122/61/89
LV (s/x mmHg): Not obtained.
LEFT VENTRICULOGRAPHY: Not performed.
CORONARY ANGIOGRAPHY
Dominance: Right.
Left Main: Normal size, bifurcating vessel. There is no coronary artery disease.
LAD: Normal size vessel giving rise to 2 small diagonals. There is dense calcification throughout the proximal and mid vessel. There is a discrete, 70-80% lesion in the proximal/mid LAD spanning the origin of the first diagonal.
Ramus: Congenitally absent.
Circumflex: Large size, nondominant vessel giving rise to 3 obtuse marginals. There are minimal luminal irregularities throughout the body of the circumflex. OM 3 is a SOLAR SALES AMBASSADOR, filling via collaterals.
RCA: Not injected. Known to be a normal size, dominant vessel, status post PCI to a true ostial RCA lesion.
INTERVENTION(S)
1. Successful PCI of the 70-80% proximal/mid LAD lesion (Xience Skypoint 3.0 x 15 GERMAIN, postdilated with a 3.0 x 12 NC balloon) with reduction in stenosis to 0%, maintaining MAYRA-3 flow.
Narrative:
The decision was made to proceed with percutaneous coronary intervention. A 6Fr EBU 3.5 guiding catheter was advanced to the aortic root and seated in the left main coronary artery. Additional heparin was given and a Power Turn Flex wire was
advanced distal LAD with some difficulty given the mid vessel tortuosity and preference for the second diagonal. The 70-80% proximal/mid LAD lesion was predilated with a 2.0 x 12 semi-compliant balloon to 12 alejandro. The semi-compliant balloon was
removed and a Xience Skypoint 3.0 x 15 drug-eluting stent was advanced. Meticulous care was taken while positioning the stent, ensuring that the entire lesion was covered while avoiding the more distal tortuosity. The stent was deployed at 12
atmospheres. The stent balloon was removed. A 3.0 x 12 noncompliant balloon was advanced into the stent and the stent was postdilated to 16 atmospheres.
The decision was made to attempt intracoronary imaging. An IVUS catheter was advanced through the guiding catheter and into the ostium of the artery. Ring down was performed once the imaging crystal was no longer inside of the guiding catheter. The
IVUS catheter was advanced through the left main and into the LAD. Unfortunately, the degree of calcification made and possible to pass the IVUS catheter further, though the calcific plaque was nonobstructive on angiography. The patient was
suffering from some significant back pain due to the discomfort of laying on the cath table. IVUS was abandoned.
Angiography was performed in orthogonal views, confirming good stent expansion and an excellent angiographic result. The coronary wire was withdrawn and the guide was disengaged from the artery. The catheter was removed over a standard J-wire.
Closure Device: Vascular band.
Radiation (mGy): 395.73
DAP (cm2.Gy): 21.5982
Fluoroscopy time (minutes): 7.3
Sedation time (minutes): 40
CONCLUSIONS
1. Right dominant circulation with prior PCI to the ostial RCA, SOLAR SALES AMBASSADOR of OM 3 and a discrete, 70-80% lesion in the mid LAD, status post successful PCI (Xience Skypoint 3.0 x 15 GERMAIN, postdilated with a 3.0 x 12 NC balloon) with reduction in stenosis
to 0%, maintaining MAYRA-3 flow.
2. Severe back pain during procedure, relieved with sitting up.
RECOMMENDATIONS:
1. Expectant management after cardiac catheterization via right radial approach.
2. Limited weight bearing on the right wrist for one week.
3. Continue dual antiplatelet therapy from prior PCI.
4. Aggressive secondary prevention.
5. Referral to cardiac rehab.
Copy to: Ayo Collazo M.D., Brian Stover, D.O.
Brian Stover DO, FACC, FACP
[2024-03-01] MEDS: TYLENOL 650 MG PO (12:19)
[2024-03-01] MEDS: SUBUTEX 8 MG SL (15:24)
--- NOTE | 2024-03-01 16:45 | W.PN.UPDATE ---
Update Note
Progress Note Update
73 yo WM s/p PCI LAD staged (same day). He feels good, no cp, sob, rasheed diet, voiding, amb w/o dizziness, EKG SR 1deg AVB, no new ST changes, R rad site c/d/i. He will continue DAPT ASA/Plavix. Cardiac rehab c/s. He will f/u [facility] in 2 weeks. He is
for d/c home after 430p.
CONCLUSIONS
1. Right dominant circulation with prior PCI to the ostial RCA, CEMENT BREAKER of OM 3 and a discrete, 70-80% lesion in the mid LAD, status post successful PCI (Xience Skypoint 3.0 x 15 GERMAIN, postdilated with a 3.0 x 12 NC balloon) with reduction in stenosis
to 0%, maintaining MAYRA-3 flow.
2. Severe back pain during procedure, relieved with sitting up.
RECOMMENDATIONS:
1. Expectant management after cardiac catheterization via right radial approach.
2. Limited weight bearing on the right wrist for one week.
3. Continue dual antiplatelet therapy from prior PCI.
4. Aggressive secondary prevention.
5. Referral to cardiac rehab.
Copy to: Ayo Collazo M.D., Brian Stover, D.O.
== END 2024-03-01 16:35 | disposition home or self-care (01) ==
LOC: CATH 08:32
PROVIDERS: ATTENDING PHYSICIAN Internal Medicine Cardiovascular Disease; FAMILY PHYSICIAN Family Medicine
DX: I25.10 Atherosclerotic heart disease of native coronary artery without angina pectoris (principal); Z79.02 Long term (current) use of antithrombotics/antiplatelets; M54.9 Dorsalgia, unspecified; I25.84 Coronary atherosclerosis due to calcified coronary lesion; I25.82 Chronic total occlusion of coronary artery; Z79.82 Long term (current) use of aspirin; F17.210 Nicotine dependence, cigarettes, uncomplicated
CPT/HCPCS: 85347; 92978; 93005; C1725; C1753; C1874; C1894; C9600; Q9967

== ENCOUNTER 2024-03-14 11:38 | Emergency (ER) | payer MEDICARE, OTHER, SELFPAY ==
[2024-03-14] VITALS (11 sets, daily range): BP systolic 140–163; BP diastolic 67–108; PULSE 63–70; BMI 34.2
[2024-03-14 11:45] LABS: Glucose - Point of Care 120 mg/dl (70-99)
[2024-03-14 12:11] LABS: % Basophils 0.2 % (0-2); % Eosinophils 2.3 % (0-6); % Immature Granulocytes 0.4 % (0-0.5); % Monocytes 5.2 % (1.7-9.3); % Neutrophils 71.9 % (42.2-75.2); Absolute Eosinophils 0.2 10^3/uL (0-0.7); Absolute Lymphocytes 1.7 10^3/uL (1.2-3.4); Absolute Monocytes 0.4 10^3/uL (0.1-0.6); Absolute Neutrophils 5.9 10^3/uL (1.4-6.5); Mean Corp Hgb Conc. 32.4 g/dL (33.0-37.0); Mean Corpuscular Hgb 31.5 pg (27.0-31.0); Mean Corpuscular Volume 97.4 fL (80.0-94.0); Mean Platelet Volume 11.2 fL (7.4-10.4); Nucleated Red Blood Cells % 0 % (-); Platelet Count 83 10^3/uL (130-400); Red Blood Cell Count 3.49 10^6/uL (4.70-6.10); Red Cell Dist. Width 13.4 % (11.5-14.5); White Blood Cell Count 8.2 10^3/uL (4.8-10.8)
[2024-03-14] MEDS: ZOFRAN 4 MG IV (12:22)
--- NOTE | 2024-03-14 12:25 | CON.NEURO ---
Neuro Assessment/Plan
Assessment
IMPRESSIONS/RECOMMENDATIONS:
Abrupt recurrence of dizziness in a patient with a prior episode 1 day following his cardiac catheterization in January 2024
Patient describes this symptomatology as identical to the event leading to diagnosis of a very small left frontoparietal acute ischemic lesion
Differential diagnosis therefore includes recurrence of stroke as well as metabolic abnormality producing symptoms
Plan
check blood work for potential metabolic causes
Check MRI of brain without contrast
Provide symptomatic therapy including dimenhydrinate IV
Provide lorazepam due to the patient's claustrophobia
No indication at this time for repeating neuroimaging of the patient's vasculature
Continue both aspirin and clopidogrel which were being utilized due to the patient's recent cardiac stent placement
Continue atorvastatin
Outpatient evaluation of the patient's thrombocytopenia
Will continue to follow patient.
Consultation
Order
Date of Consultation: 03/14/24
Requesting Provider: Emergency department physician
Reason for Consult: Dizziness
Subjective/Objective
Subjective Data
Date of Service: March 14, 2024
DICTATED BY: Eric Quick
DATE/TIME OF CONSULTATION: 02/02/24
Reason for Consultation: Nausea/vomiting, dizziness, vertigo and balance problems of sudden onset
Patient is a 73 year old right handed man with history of CAD and recent coronary stent on 01/30 who presented to hospital yesterday evening after sudden onset of disequilibrium which evolved into vertigo, nausea and vomiting. Patient had done well
after cardiac catheterization and went home the same day with no symptoms. The evening of 01/31 he was doing some grilling steaks around 6 PM when he had sudden onset of a feeling of imbalance, he sat down thinking this would help but the feeling
worsened and he started to have vertigo with nausea and had several episodes in vomiting total. There was no headache or neck pain, possibly some abnormal movements of the eyes but no diplopia, dysarthria, unilateral weakness or paresthesia and no
loss of consciousness. Nothing like this had ever happened before. There was no new hearing loss or tinnitus and no hiccups. He had CTA of the head and neck and CT head done in ER which showed no acute or intervenable abnormalities. His last episode
of vomiting was about 2 AM last night. No chest pain or dyspnea or palpitations with presenting symptoms. Symptoms lasted several hours in total.
He is feeling improved this morning. No neck pain or headache. Not feeling 100% but better. No recent neck injuries, no recent illnesses before this. No chest pain or or dyspnea at this time. No history of any migraine headaches or episodes of
vertigo. Had had a eustachian tube problem many years ago.
Neuro Imaging: CT head non contrast no acute or chronic infarcts, no hemorrhage, no masses
CTA head and neck IMPRESSION: Slightly limited bolus but no gross evidence of M1 or M2 occlusion. No carotid dissection.
Moderate nonacute sinusitis.
Impressions
1. Sudden onset dysequlibrium, vertigo, nausea and vomiting 1 day after uncomplicated cardiac catheterization. Normal neurologic examination now and has improved. Most likely this is a minor stroke to the cerebellum which has improved versus TIA of
the posterior circulation. Could have been provoked from the recent cardiac catheterization. Otherwise does have vascular risk factors for stroke with CAD. His current examination along with the duration of symptoms are not consistent with
vestibular neuritis, BPPV, or meniere's disease.
2. Asymptomatic carotid stenosis.
3. Recent cardiac catheterization
MRI of brain findings: Punctate 3 mm focus of restricted diffusion within the high left frontoparietal region compatible with subacute infarct.
Subsequently, patient was found to have 50 to 69% stenosis of carotids bilaterally. Patient was placed on combination of aspirin and clopidogrel as well as statin use. The patient subsequently successfully underwent cardiac catheterization and
stent placement March 01, 2024
~~~~
Patient returned to this hospital's emergency department with acute onset vertigo, today, March 14, 2024.
Started in 0900. No change to symptoms since that time. Symptoms same as previously.
Objective Data
Vital Signs
Temp Pulse Resp BP Pulse Ox
36.7 C 63 16 154/67 96
03/14/24 11:43 03/14/24 11:45 03/14/24 11:45 03/14/24 11:43 03/14/24 11:45
Lab Results
03/14/24 11:55
Patient Allergies
Penicillins Allergy (Verified 03/14/24 11:48)
Rash
Review of Systems
-
History Source: Patient
All other systems: Reviewed and negative
EENT: Blurry Vision (haze over vision, lack of clarity, bilaterally, constant); Negative Tinnitis, Hearing Loss or Swallowing Difficulty
Respiratory: Negative Trouble Breathing
Cardiac: Negative Chest Pain
Abdomen/GI: Nausea and Vomiting
Musculoskeletal: Negative Back Pain or Neck Pain
Neuro: Dizzy (lightheadedness) and Other (walking affected); Negative Headache
Physical Exam
-
General: No Apparent Distress and Appears Stated Age
Eyes: OU Absent Papilledema, Round OU, [place] Conjunctivae and No Ptosis
HEENT: Anicteric and Moist Mucous Membranes
Neck: Full Range of Motion
Respiratory: No Dyspnea
Cardiac: No JVD
GI: Non-distended
Skin: Unremarkable
Extremities: No Clubbing, No Cyanosis and No Edema
Psych: Intact Judgement/Insight
Extended Neurological Exam
Mood & Affect: Negative Affect Unremarkable (Stoic)
Attention Span & Concentration: Awake, Alert, Interactive and Mild Difficulty with 2 Step Request
Memory: Unremarkable
Tremor: Hand Tremor Absent and Head Tremor Absent
Speech: Quality Unremarkable and Quantity Unremarkable
Cranial Nerve II: Left Eye: Pupillary Reactivity Unremarkable, Pupillary Size Unremarkable and Visual Angel Intact
Cranial Nerve II: Right Eye: Pupillary Reactivity Unremarkable, Pupillary Size Unremarkable and Visual Angel Intact
Cranial Nerves III, IV, : Extraocular Movement: Extraocular Movement Full in all Directions; Negative Nystagmus with Extreme Gaze to Left or Nystagmus with Extreme Gaze to Right
Cranial Nerve VII: Facial Symmetry: Normal Facial Symmetry
Cranial Nerve VIII: Hearing: Unremarkable Hearing to Normal Conversational Volume
Cranial Nerves IX, X: Palate Movement: Palate Elevation Symmetric
Cranial Nerve XI: Shoulder Shrug: Unremarkable
Cranial Nerve XII: Tongue Protusion: Midline
Muscle Strength, Overall: Full Throughout
Muscle Bulk & Tone: Bulk Unremarkable and Tone Unremarkable
Pronator Drift: No Drift in Upper Extremities
Deep Tendon Reflexes: Unremarkable Throughout
Touch Sensation: Unremarkable and Double Simultaneous Stimulation Unremarkable
Coordination: Wpdiul-[id number]-[id number] Testing Unremarkable and Clvw-Intu-Yuhn movements intact bilaterally
Babinski Sign: Absent Bilaterally
Data Reviewed
-
CT Head: Ordered
MRI Head: Ordered
Labs: Report Reviewed
Reviewed with: Physician, Patient and Family
Old Records: Summarized
Medications
-
Home Medications
�Medication �Instructions �Recorded
aspirin 81 mg chewable tablet 81 mg PO HS 01/31/24
atorvastatin 40 mg tablet 40 mg PO HS 01/31/24
clopidogrel 75 mg tablet 75 mg PO DAILY #90 tabs 01/31/24
metoprolol succinate 50 mg 50 mg PO HS 01/31/24
tablet,extended release 24 hr
naproxen 500 mg tablet 500 mg PO BID PRN mild Pain 01/31/24
nitroglycerin 0.4 mg sublingual 0.4 mg sublingual [id number] PRN 01/31/24
tablet chest pain #25 tabs
buprenorphine 8 mg-naloxone 2 mg 1 film sublingual TID 02/01/24
sublingual film
[2024-03-14 12:30] LABS: ALT (SGPT) 25 U/L (0-50); AST (SGOT) 31 U/L (17-59); Albumin 4.3 g/dl (3.5-5.0); Alkaline Phosphatase 63 U/L (38-126); Blood Urea Nitrogen 25 mg/dl (9-20); Calcium 9.4 mg/dl (8.4-10.2); Carbon Dioxide 29 mmol/L (22-30); Chloride 103 mmol/L (98-107); Estimated Creatinine Clearance 82 ml/min; Glucose 112 mg/dl (70-99); Potassium 4.6 mmol/L (3.5-5.1); Sodium 141 mmol/L (135-145); Total Bilirubin 0.7 mg/dl (0.2-1.3); Total Protein 7.5 g/dl (6.3-8.2); eGFR > 60.00
--- NOTE | 2024-03-14 12:51 | ED.CVA ---
History of Present Illness
<John Charles MD - Last Filed: 03/14/24 14:57>
General
Chief Complaint: CVA/TIA Symptoms
Source: patient and spouse
Exam Limitations: none
Time Seen by Provider: 03/14/24 11:44
Nursing documentation reviewed up to this point in time: agreed with
Onset of Stroke Symptoms
Onset of symptoms known: Yes
Date of onset of symptoms: 03/14/24
Travel History
Have you had any contact with someone who has COVID-19?: No
Do you have any symptoms of coronavirus? Fever > 100 degrees, chills, cough, shortness of breath, sore throat, loss of taste or smell, muscle aches, or headache?: No
History of Present Illness
History of Present Illness:
73-year-old male with past medical history of hyperlipidemia, CAD status post stent, CVA who presents to the emergency department with his for evaluation of dizziness. Patient reports abrupt onset of symptoms about an hour prior to arrival and
they have been constant since that time. He reports a dizzy sensation as if the room is spinning. Associated with nausea and vomiting. He called EMS to bring him to the hospital. He has not had any change in his vision or speech. Denies any
headache. Denies any focal weakness or numbness in his extremities. He denies any chest pain or palpitations. He denies any abdominal pain. He denies any recent illness as he was in his normal state of health prior to onset. He does note that
he had a recent stroke with identical symptoms and is very concerned that this is another stroke.
Past History
<John Charles MD - Last Filed: 03/14/24 14:57>
Past History
ED Past Medical History: CAD
ED Past Surgical History: Appendectomy and Cardiac (Cardiac stent)
Social History
Tobacco: Non-smoker
Personal:
Living: with family
Review of Systems
<John Charles MD - Last Filed: 03/14/24 14:57>
Review of Systems
All Other Systems: ROS reviewed and negative except as documented in HPI and ROS
Constitutional: Denies fever or chills
EENT: Denies sore throat or runny nose
Respiratory: Denies cough or trouble breathing
Cardiac: Denies chest pain or palpitations
ABD/GI: Reports nausea and vomiting; Denies abdominal pain
: Denies flank pain
Musculoskeletal: Denies neck pain or back pain
Neurological: Reports dizzy; Denies headache, weakness or numbness
Phy Exam
<John Charles MD - Last Filed: 03/14/24 14:57>
Physical Exam
Physical Exam:
General: Awake, alert, oriented x3; no acute distress
Head: Normocephalic, atraumatic
Eyes: Conjunctiva normal, EOMI with rightward nystagmus, pupils equal round and reactive to light bilaterally
Throat: Airway intact, handling secretions
Neck: Trachea midline, supple without meningismus
Lungs: Clear to auscultation bilaterally, no wheezing, rales, rhonchi
Heart: Regular rate and rhythm, no murmurs, gallops, or rubs
Abd: Soft, non distended, nontender
Neuro: Cranial nerves intact 2 through 12, speech is fluid with no dysarthria or aphasia, no limb ataxia, motor and sensory function is intact and symmetric in the upper and lower extremities
Skin: no rash
Extremities: No edema in extremities, equal pulses in all extremities
Scores
<John Charles MD - Last Filed: 03/14/24 14:57>
NIH Stroke Score
Level of Consciousness: 0 - Alert
LOC Questions: 0-Answers both correctly
LOC Commands: 0-Performs both correctly
Best Horizontal Gaze: 0-Normal
Visual Angel: 0=Normal, no visual loss
Facial Palsy: 0=Normal, symmetrical
Motor - Right Arm: 0=No drift 10 seconds
Motor - Left Arm: 0=No drift 10 seconds
Motor - Right Le-No drift 5 seconds
Motor - Left Le-No drift 5 seconds
Limb Ataxia: 0-Absent
Sensation: 0-Normal
Best Language: 0-No aphasia
Dysarthria: 0-Normal
Extinction and Inattention: 0-No abnormality
Total Score:: 0
Thrombolytic Contraindication
Inclusion and Exclusion criteria reviewed: Yes
Reasons for NON-Tx with Thrombolytics POSSIBLE Exclusions: Recent ischemic stroke within 3 months
Heart Failure Risk
Heart Failure Risk Score: Not Applicable
Heart Score for Chest Pain Patients
STEMI patient?: Not applicable
Withdrawal Assessment of Alcohol
Withdrawal Assessment Completed?: Not applicable
<Eulogio Perdomo MD - Last Filed: 03/14/24 16:49>
NIH Stroke Score
Total Score:: 0
Course
<John Charles MD - Last Filed: 03/14/24 14:57>
Orders/Labs/Results
Orders:
Orders
03/14/24 11:42
Electrocardiogram (*1) Urgent
Reason for Study: Vertigo / Dizzy
03/14/24 11:43
EKG- Treatment ONCE
03/14/24 11:55
APARNA, IgG Reflex to HEp-2 [S] Urgent
Alcohol Urgent
C-Reactive Protein Urgent
Comment: ADD ON
Complete Blood Count/With Diff Urgent
Comprehensive Metabolic Panel Urgent
Erythrocyte Sed Rate Urgent
Comment: ADD ON
03/14/24 12:14
Orthostatic VS- Treatment ONCE
03/14/24 12:15
Ondansetron Injectable [Zofran] 4 mg IV NOW STA
03/14/24 12:17
NEUROLOGY CONSULT Urgent
Consulting Provider: Sohail Phan
Was physician already notified: Yes
03/14/24 13:01
MR Brain Without Contrast Routine
Comment:
Reason For Exam: vertigo
Recent pill cam endoscopy?: No
03/14/24 13:04
Lorazepam [Ativan] 1 mg PO NOW STA
dimenhyDRINATE 50 mg IV NOW STA
03/14/24 13:06
Pt Eval And Treat Routine
Treatment: Gait dysfxn
Activity Level: Out of Bed- Chair
03/14/24 13:09
0.9% Sodium Chloride [Nss (Preservative Free)] 10 ml INJ NOW STA
03/14/24 13:20
Add On- LAB Routine
Comments:: Please add to today's labs or draw as routine
Tests Added?: Ferritin, Folate, Vit. B12, ESR, CRP, APARNA, UDS, EtOH
03/14/24 13:30
Urine Drug Abuse Screen Routine
Abnormal Lab Results
03/14/24 03/14/24
11:44 11:55
RBC 3.49 L 10^6/uL
(4.70-6.10)
Hgb 11.0 L g/dL
(13.0-18.0)
Hct 34.0 L %
(39.0-52.0)
MCV 97.4 H fL
(80.0-94.0)
MCH 31.5 H pg
(27.0-31.0)
MCHC 32.4 L g/dL
(33.0-37.0)
Plt Count 83 L 10^3/uL
(130-400)
MPV 11.2 H fL
(7.4-10.4)
Lymphocytes % 20.0 L %
(20.5-51.1)
ESR 22 H mm/hour
(0-20)
BUN 25 H mg/dl
(9-20)
Glucose 112 H mg/dl
(70-99)
POC Glucose 120 H mg/dl
(70-99)
03/14/24 11:55
03/14/24 11:55
Vital Signs
Initial and Last Documented VS:
Initial Vital Signs
BP
154/67
03/14/24 11:42
Last Documented Vital Signs
Temp Pulse Resp BP Pulse Ox
98.0 F 67 21 148/74 94
03/14/24 11:43 03/14/24 13:40 03/14/24 13:40 03/14/24 14:33 03/14/24 14:45
<Eulogio Perdomo MD - Last Filed: 03/14/24 16:49>
Orders/Labs/Results
Orders:
Orders
03/14/24 11:42
Electrocardiogram (*1) Urgent
Reason for Study: Vertigo / Dizzy
03/14/24 11:43
EKG- Treatment ONCE
03/14/24 11:55
APARNA, IgG Reflex to HEp-2 [S] Urgent
Alcohol Urgent
C-Reactive Protein Urgent
Comment: ADD ON
Complete Blood Count/With Diff Urgent
Comprehensive Metabolic Panel Urgent
Erythrocyte Sed Rate Urgent
Comment: ADD ON
03/14/24 12:14
Orthostatic VS- Treatment ONCE
03/14/24 12:15
Ondansetron Injectable [Zofran] 4 mg IV NOW STA
03/14/24 12:17
NEUROLOGY CONSULT Urgent
Consulting Provider: Sohail Phan
Was physician already notified: Yes
03/14/24 13:01
MR Brain Without Contrast Routine
Comment:
Reason For Exam: vertigo
Recent pill cam endoscopy?: No
03/14/24 13:04
Lorazepam [Ativan] 1 mg PO NOW STA
dimenhyDRINATE 50 mg IV NOW STA
03/14/24 13:06
Pt Eval And Treat Routine
Treatment: Gait dysfxn
Activity Level: Out of Bed- Chair
03/14/24 13:09
0.9% Sodium Chloride [Nss (Preservative Free)] 10 ml INJ NOW STA
03/14/24 13:20
Add On- LAB Routine
Comments:: Please add to today's labs or draw as routine
Tests Added?: Ferritin, Folate, Vit. B12, ESR, CRP, APARNA, UDS, EtOH
03/14/24 13:30
Urine Drug Abuse Screen Routine
Abnormal Lab Results
03/14/24 03/14/24
11:44 11:55
RBC 3.49 L 10^6/uL
(4.70-6.10)
Hgb 11.0 L g/dL
(13.0-18.0)
Hct 34.0 L %
(39.0-52.0)
MCV 97.4 H fL
(80.0-94.0)
MCH 31.5 H pg
(27.0-31.0)
MCHC 32.4 L g/dL
(33.0-37.0)
Plt Count 83 L 10^3/uL
(130-400)
MPV 11.2 H fL
(7.4-10.4)
Lymphocytes % 20.0 L %
(20.5-51.1)
ESR 22 H mm/hour
(0-20)
BUN 25 H mg/dl
(9-20)
Glucose 112 H mg/dl
(70-99)
POC Glucose 120 H mg/dl
(70-99)
03/14/24 11:55
03/14/24 11:55
Vital Signs
Initial and Last Documented VS:
Initial Vital Signs
BP
154/67
03/14/24 11:42
Last Documented Vital Signs
Temp Pulse Resp BP Pulse Ox
98.0 F 67 21 148/74 94
03/14/24 11:43 03/14/24 13:40 03/14/24 13:40 03/14/24 14:33 03/14/24 14:45
<John Charles MD - Last Filed: 03/14/24 14:57>
MDM/Problems Addressed
Differential Diagnosis Includes:
Stroke, peripheral vertigo, arrhythmia, anemia, electrolyte derangement
MDM/Problems Addressed:
73-year-old male presents for evaluation of dizziness associate with nausea and vomiting that started acutely this morning an hour prior to arrival�he says the symptoms are identical to his prior stroke which occurred 6 weeks ago. He is
hypertensive but has otherwise normal vitals. Physical exam as above�notably he has no other neurologic symptoms and no focal neurologic deficits. He does have nystagmus today which is unidirectional on my assessment. Nevertheless given his
insistence this is similar to his prior stroke will check labs including a CBC and a CMP and send for CT head. Discussed case with neurology for assessment. Provide Zofran for nausea. Monitor closely reassess after the above. Held off on stroke
alert as he would not be a tPA/tNK candidate given his recent ischemic stroke as well as his stroke scale 0.
Initial labs reviewed: CBC and CMP no clinically significant abnormalities. Case discussed with neurology who did bedside assessment�recommended foregoing CT in favor of MRI. They will continue to follow.
Chronic conditions affecting care:
History of hyperlipidemia and recent stroke�higher risk for stroke
Acute Exacerbation and/or Progression of Chronic Illness:
Acutely hypertensive
Acute Exacerbation and/or Progression of Chronic Illness: HTN
<John Charles MD - Last Filed: 03/14/24 14:57>
*Radiology
Radiology exam reviewed: radiology read reviewed
*Pulse Oximetry
Patient hypoxic: no
*EKG
Interpreted by ED Provider?: Yes
Heart Rate: 76
Rate: normal
Rhythm: sinus
[place]: normal axis
Interval: normal interval
QRS Pattern: normal QRS
Ischemia: no ischemia
*Critical Care Note
Total Time (30-74mins, 75-104mins- exclusive of procedures): Not Applicable
Data Reviewed
Review of Other/Old Records Reveals: Labs, Records and Discharge Summary
Source: patient, records and spouse
<John Charles MD - Last Filed: 03/14/24 14:57>
Patient Management
Discussion with other providers: It Operations Specialist (Discussed with neurology)
<Eulogio Perdomo MD - Last Filed: 03/14/24 16:49>
Update Note
Update Note:
MRI unremarkable for acute changes. Patient and family updated. Comfortable with going home which was the plan.
ED Attending Note
<John Charles MD - Last Filed: 03/14/24 14:57>
-
Portions of this chart may have been created with voice recognition software.� Occasional wrong word or��sound alike� substitutions may have occurred due to the inherent limitations of voice recognition software.
Discharge Plan
Departure
Patient Disposition: Home (Routine Discharge)
Date of Disposition: 03/14/24
Time of Disposition: 16:48
Patient with high blood pressure during this ER visit?: Yes
Discharge Problem:
Dizziness
Instructions: Vertigo (a Type of Dizziness) (DC)
Prescriptions:
New
dimenhydrinate [Dramamine] 50 mg tablet
50 mg PO Q8H Qty: 20 0RF
No Action
atorvastatin 40 mg Tablet
40 mg PO HS
metoprolol succinate 50 mg Tablet Extended Release 24 Hr
50 mg PO HS
aspirin 81 mg Tablet,Chewable
81 mg PO HS
naproxen 500 mg Tablet
500 mg PO BID PRN (Reason: mild Pain)
clopidogrel 75 mg tablet
75 mg PO DAILY Qty: 90 3RF
nitroglycerin 0.4 mg tablet, sublingual
0.4 mg sublingual [id number] PRN (Reason: chest pain) Qty: 25 2RF
buprenorphine-naloxone 8-2 mg film
1 film sublingual TID
Patient Comments:
02/01/2024: last filled 12/31/23, 270 film for 90 days from [place]
Referrals:
Ayo Collazo MD [Family Provider] -
Sohail Phan MD [Active] - Call in 1-3 days for appt
Keith Del Toro MD [Active] - Call in 1-3 days for appt (ENT--follow up regarding vertigo)
Activity Restrictions/Additional Instructions:
Thank you for visiting the Emergency Department at [facility].
1. Please schedule a follow up appointment as directed. Call first thing tomorrow morning to make an appointment.
2. If indicated, please take your medications as instructed and indicated on discharge paperwork.
3. If any of your symptoms do not improve, or persist, or become more severe within 6-12 hours, please return to the emergency department for further care.
4. Please return to the emergency department if you develop a headache, neck pain/stiffness, fever greater than 100.4F, chest pain, shortness of breath, persistent nausea, vomiting, slurred speech, difficulty walking, numbness/tingling, weakness,
signs of infection or any other symptoms that are worrisome to you.
Please call [phone] if you have any questions.
Interventions
Interventions:
*Risk Screen - Suicide Last Done: 03/14/24 11:43
*General Assessment Last Done: 03/14/24 11:43
*Neglect/Abuse Screening Last Done: 03/14/24 11:43
ED- Pulmonary Assessment Last Done: 03/14/24 12:13
ED- Neurological Assessment Last Done: 03/14/24 12:13
ED- Cardiac Assessment Last Done: 03/14/24 12:13
Discharge Date and Time
Print Language: MALTESE
[2024-03-14] MEDS: dimenhyDRINATE 50 MG IV (13:20)
[2024-03-14] MEDS: ATIVAN 1 MG PO (13:42)
[2024-03-14 13:54] LABS: Erythrocyte Sed Rate 22 mm/hour (0-20)
[2024-03-14 14:35] LABS: Alcohol None Detected
[2024-03-16 20:56] LABS: ANA, IgG Reflex to HEp-2 None Detected (None Detected)
== END 2024-03-14 17:05 | disposition home or self-care (01) ==
LOC: EMR 11:38
PROVIDERS: CONSULT PHYSICIAN Psychiatry & Neurology Neurology; EMERGENCY PHYSICIAN Emergency Medicine; FAMILY PHYSICIAN Family Medicine
DX: R42 Dizziness and giddiness (principal); R11.2 Nausea with vomiting, unspecified; I25.10 Atherosclerotic heart disease of native coronary artery without angina pectoris; D69.6 Thrombocytopenia, unspecified; E78.00 Pure hypercholesterolemia, unspecified; H55.00 Unspecified nystagmus; Z79.02 Long term (current) use of antithrombotics/antiplatelets; Z86.73 Personal history of transient ischemic attack (TIA), and cerebral infarction without residual deficits; Z88.0 Allergy status to penicillin; Z90.49 Acquired absence of other specified parts of digestive tract; Z95.5 Presence of coronary angioplasty implant and graft
CPT/HCPCS: 99284; 70551; 80053; 82077; 82962; 85025; 85652; 86038; 86140; 93005; J1240

== ENCOUNTER 2024-04-12 09:30 | Outpatient (RCR) | payer MEDICARE, OTHER, SELFPAY | END 2024-04-12 23:59 | disposition home or self-care (01) | LOC: CRHB 09:30 | PROVIDERS: ATTENDING PHYSICIAN Internal Medicine Cardiovascular Disease | DX: I25.10 Atherosclerotic heart disease of native coronary artery without angina pectoris (principal); Z95.5 Presence of coronary angioplasty implant and graft | CPT/HCPCS: G0422; G0423 ==

== ENCOUNTER 2024-05-10 10:29 | Outpatient (RCR) | payer MEDICARE, OTHER, SELFPAY | END 2024-05-10 23:59 | disposition home or self-care (01) | LOC: CRHB 10:29 | PROVIDERS: ATTENDING PHYSICIAN Internal Medicine Cardiovascular Disease | DX: I25.10 Atherosclerotic heart disease of native coronary artery without angina pectoris (principal); Z95.5 Presence of coronary angioplasty implant and graft | CPT/HCPCS: G0422; G0423 ==

== ENCOUNTER → 2024-05-22 12:54 | Outpatient (REF) | payer MEDICARE, OTHER, SELFPAY | LOC: RAD 12:54 | PROVIDERS: ATTENDING PHYSICIAN Surgery Vascular Surgery; FAMILY PHYSICIAN Family Medicine | DX: I65.23 Occlusion and stenosis of bilateral carotid arteries (principal) | CPT/HCPCS: 70496; 70498; Q9967 ==

== ENCOUNTER 2024-12-13 07:06 | Day surgery (SDC) | payer MEDICARE, OTHER, SELFPAY ==
[2024-12-04 09:48] VITALS: BMI 37.1
== END 2024-12-13 10:01 | disposition home or self-care (01) ==
LOC: CATH 07:06
PROVIDERS: ATTENDING PHYSICIAN Internal Medicine Cardiovascular Disease; FAMILY PHYSICIAN Family Medicine
DX: I08.1 Rheumatic disorders of both mitral and tricuspid valves (principal); I25.10 Atherosclerotic heart disease of native coronary artery without angina pectoris; I65.29 Occlusion and stenosis of unspecified carotid artery; I10 Essential (primary) hypertension; E78.5 Hyperlipidemia, unspecified; Z86.73 Personal history of transient ischemic attack (TIA), and cerebral infarction without residual deficits; Z95.5 Presence of coronary angioplasty implant and graft; F17.210 Nicotine dependence, cigarettes, uncomplicated; Z79.02 Long term (current) use of antithrombotics/antiplatelets; Z79.82 Long term (current) use of aspirin
CPT/HCPCS: 93312; 93320; 93325